=== PATIENT | male | born 1985 | race Caucasian/White ===

== ENCOUNTER 2022-11-24 13:49 | Emergency (ER) | payer OTHER ==
[~2022-11-24] VITALS: Ht 177.8 cm; Wt 138.7 kg
[2022-11-24 15:23] LABS: Eosinophils # (auto) 0.1 10 ^3/uL (0-0.8); Hemoglobin 14.7 g/dL (13.5-17.5); Monocytes # (auto) 0.6 10 ^3/uL (0-1.3)
[2022-11-24 15:25] LABS: Basophils # (auto) 0.1 10 ^3/uL (0-0.2); Basophils % (auto) 0.8 % (0.0-2.0); Eosinophils % (auto) 1.5 % (0.0-7.0); Hematocrit 43.6 % (41.0-53.0); Lymphocytes % (auto) 30.3 % (10.0-50.0); Mean Corpuscular Hemoglobin 26.1 pg (28.0-32.0); Mean Corpuscular Hgb Conc. 33.7 g/dL (32.0-36.0); Mean Corpuscular Volume 77.6 fL (80.0-100.0); Monocytes % (auto) 8.4 % (0.0-12.0); Nucleated Red Blood Cells % 0.2 %; Red Blood Cells 5.61 10^6/uL (4.5-5.90); Red Cell Distribution Width 14.6 % (11.8-14.3); White Blood Cell 6.7 10^3/uL (4.4-10.8)
[2022-11-24 15:39] LABS: Calcium 8.7 mg/dL (8.5-10.1); Potassium 3.9 mmol/L (3.5-5.1)
[2022-11-24 15:44] LABS: BUN/Creatinine Ratio 10.6; Bilirubin, Total 0.5 mg/dL (0.2-1.0); Total Protein 8.2 g/dL (6.4-8.2)
[2022-11-24 15:52] LABS: Urine Bacteria NONE SEEN /hpf (None Seen); Urine Blood Negative /uL (Negative); Urine Mucus FEW (None Seen); Urine Specific Gravity 1.016 (1.001-1.035); Urine WBC 1 /hpf (0 - 3)
[2022-11-24 17:36] VITALS: BP 117/92
== END 2022-11-24 17:44 | disposition home or self-care (01) ==
LOC: ER 13:49
DX: N20.0 Calculus of kidney (principal); R10.31 Right lower quadrant pain; F12.90 Cannabis use, unspecified, uncomplicated; Z90.49 Acquired absence of other specified parts of digestive tract
CPT/HCPCS: 36415; 74176; 80053; 81001; 85025